=== PATIENT | male | born 1950 | race Caucasian/White ===

== ENCOUNTER 2023-09-07 20:18 | Emergency (ER) | payer MEDICARE, OTHER ==
[~2023-09-07] VITALS: Ht 172.7 cm; Wt 101.2 kg
[2023-09-07 21:34] VITALS: TEMP 98.2
[2023-09-07 22:48] LABS: BASOPHILS # (AUTO) 0.1 K/uL (0.0-0.2); BASOPHILS % (AUTO) 1.9 % (0.0-2.0); EOSINOPHILS # (AUTO) 0.1 K/uL (0.0-0.7); EOSINOPHILS % (AUTO) 1.7 % (0.0-6.0); HEMATOCRIT 29 % (39-51); LYMPHOCYTES % (AUTO) 17.1 % (20.0-44.0); MEAN CORPUSCULAR HEMOGLOBIN 29 PG (26.0-33.0); MEAN CORPUSCULAR HGB CONC 34 g/dl (31.0-36.0); MEAN CORPUSCULAR VOLUME 85 fL (80-96); MONOCYTES # (AUTO) 0.3 K/uL (0.1-1.30); MONOCYTES % (AUTO) 6.1 % (2.0-12.0); NEUTROPHILS # (AUTO) 4.1 K/uL (1.8-8.9); NEUTROPHILS % (AUTO) 73.2 % (43.0-81.0); PLATELET COUNT (AUTO) 253 K/uL (150-450); RED BLOOD CELL COUNT(AUTO) 3.42 MIL/uL (4.5-6.0); RED CELL DISTRIBUTION WIDTH 16.1 % (11.5-15.0); WHITE BLOOD COUNT (AUTO) 5.7 K/uL (4.3-11.0)
[2023-09-07 23:08] LABS: CALCIUM, SERUM 8.7 mg/dL (8.5-10.1); CARBON DIOXIDE 30 mmol/L (21-32); CHLORIDE 99 mmol/L (98-107); CREATININE 1.4 mg/dL (0.6-1.3); GLUCOSE 367 mg/dL (74-106); POTASSIUM 3.6 mmol/L (3.5-5.1); SODIUM SERUM 136 mmol/L (136-145); UREA NITROGEN, BLOOD 19 mg/dL (7-18)
[2023-09-07 23:22] LABS: NT-PRO BNP 1358 pg/mL (0-125)
[2023-09-08] MEDS ORDERED: FUROSEMIDE 40 MG/4 ML VIAL ONE (00:32)
[2023-09-08] MEDS ORDERED: FUROSEMIDE 20 MG/2 ML VIAL ONE (00:33)
[2023-09-08] MEDS: FUROSEMIDE 20 MG/2 ML VIAL IV ONE (00:37)
[2023-09-08] MEDS: ACETAMINOPHEN ES 500 MG TABLET PO ONE (00:38)
[2023-09-08 05:15] VITALS: BP 137/94; O2SAT 99
== END 2023-09-08 05:16 | disposition home or self-care (01) ==
LOC: ER 20:23
DX: S00.83XA Contusion of other part of head, initial encounter (principal); S40.012A Contusion of left shoulder, initial encounter; R60.0 Localized edema; I11.0 Hypertensive heart disease with heart failure; I50.9 Heart failure, unspecified; M79.661 Pain in right lower leg; M79.662 Pain in left lower leg; E78.00 Pure hypercholesterolemia, unspecified; E11.9 Type 2 diabetes mellitus without complications; K21.9 Gastro-esophageal reflux disease without esophagitis; F41.9 Anxiety disorder, unspecified; F32.A Depression, unspecified; W18.30XA Fall on same level, unspecified, initial encounter; Y93.89 Activity, other specified; Y92.89 Other specified places as the place of occurrence of the external cause; Y99.8 Other external cause status
CPT/HCPCS: 99285; 70450; 71045; 93005; 73060; 73030; 70486; 85025; 80048; 36415; 84484; 83880; 93970; 96374; J1940

== ENCOUNTER 2023-10-24 21:19 | Inpatient (IN) | payer MEDICARE, OTHER ==
[~2023-10-24] VITALS: Ht 185.4 cm; Wt 93.0 kg
[2023-10-24 22:19] LABS: BASOPHILS # (AUTO) 0.1 K/uL (0.0-0.2); EOSINOPHILS # (AUTO) 0.1 K/uL (0.0-0.7); EOSINOPHILS % (AUTO) 2.1 % (0.0-6.0); HEMATOCRIT 30 % (39-51); HEMOGLOBIN 10.2 g/dL (13.5-17.5); LYMPHOCYTES % (AUTO) 24.2 % (20.0-44.0); MEAN CORPUSCULAR HEMOGLOBIN 29 PG (26.0-33.0); MEAN CORPUSCULAR HGB CONC 34 g/dl (31.0-36.0); MEAN CORPUSCULAR VOLUME 84 fL (80-96); MONOCYTES # (AUTO) 0.3 K/uL (0.1-1.30); NEUTROPHILS # (AUTO) 2.7 K/uL (1.8-8.9); NEUTROPHILS % (AUTO) 63.7 % (43.0-81.0); PLATELET COUNT (AUTO) 395 K/uL (150-450); RED BLOOD CELL COUNT(AUTO) 3.56 MIL/uL (4.5-6.0); RED CELL DISTRIBUTION WIDTH 15.9 % (11.5-15.0); WHITE BLOOD COUNT (AUTO) 4.3 K/uL (4.3-11.0)
[2023-10-24 22:29] LABS: APPEARANCE,URINE CLEAR (CLEAR); BILIRUBIN,URINE NEGATIVE (NEGATIVE); BLOOD, URINE 1+ Ery/uL (NEGATIVE); COLOR,URINE YELLOW (YELLOW); KETONES,URINE TRACE mg/dL (NEGATIVE); LEUKOCYTE ESTERASE ,URINE NEGATIVE (NEGATIVE); NITRITE, URINE NEGATIVE (NEGATIVE); PH,URINE 7.5 (5.0-8.0); PROTEIN,URINE 3+ mg/dl (NEGATIVE); UGLUCOSE TRACE mg/dL (NEGATIVE)
[2023-10-24 22:43] LABS: CALCIUM, SERUM 8.3 mg/dL (8.5-10.1); CARBON DIOXIDE 27 mmol/L (21-32); CHLORIDE 107 mmol/L (98-107); CREATININE 1.2 mg/dL (0.6-1.3); GLUCOSE 174 mg/dL (74-106); POTASSIUM 3.3 mmol/L (3.5-5.1); SODIUM SERUM 142 mmol/L (136-145); UREA NITROGEN, BLOOD 9 mg/dL (7-18)
[2023-10-24 22:50] LABS: ALANINE AMINOTRANSFERASE 18 U/L (12-78); ALBUMIN 2.8 g/dL (3.4-5.0); ALKALINE PHOSPHATASE 35 U/L (46-116); ASPARTATE AMINOTRANSFERASE 21 U/L (15-37); BILIRUBIN,DIRECT 0.2 mg/dL (0.0-0.2); BILIRUBIN,TOTAL 0.4 mg/dL (0.2-1.0); TOTAL PROTEIN, SERUM 6.8 g/dL (6.4-8.2)
[2023-10-24 22:58] LABS: LACTIC ACID 1.2 mmol/L (0.4-2.0)
[2023-10-24 23:22] LABS: WBC,URINE 0-2 /HPF (0-3)
[2023-10-24 23:23] LABS: ADD URINE CULTURE NO; BACTERIA,URINE Few /HPF (None Seen)
[2023-10-25 01:41] LABS: ALCOHOL, BLOOD < 3 mg/dL (0-10); SALICYLATE 2.8 mg/dL (2.8-20.0)
[2023-10-25 01:41] LABS: AMPHETAMINE, URINE NEGATIVE (NEGATIVE); BARBITURATE, URINE NEGATIVE (NEGATIVE); BENZODIAZEPINE, URINE NEGATIVE (NEGATIVE); CANNABINOID, URINE NEGATIVE (NEGATIVE); COCCAINE, URINE NEGATIVE (NEGATIVE); OPIATE, URINE NEGATIVE (NEGATIVE); PHENCYCLIDINE SCREEN,URINE NEGATIVE (NEGATIVE)
[2023-10-25 01:42] LABS: ACETAMINOPHEN <10 ug/ml (10-30)
[2023-10-25] MEDS ORDERED: ACETAMINOPHEN 325 MG TABLET PO PRN (03:30)
[2023-10-25] MEDS ORDERED: ONDANSETRON HCL/PF 4 MG/2 ML VIAL IVP PRN (03:30)
[2023-10-25] MEDS ORDERED: Z GUARD REMEDY 4 OZ OINT TP PRN (03:30)
[2023-10-25] MEDS ORDERED: MAGNESIUM HYDROXIDE 30 ML UDC PO PRN ×2 (03:30→21:30)
[2023-10-25] MEDS ORDERED: MAG HYDROX/AL HYDROX/SIMETH 30 ML UDC PO PRN (03:30)
[2023-10-25] MEDS ORDERED: APIX5TAB PO (08:43)
[2023-10-25] MEDS ORDERED: DULO60CA45 PO (08:43)
[2023-10-25] MEDS ORDERED: BISA10SU11 RC (08:43)
[2023-10-25] MEDS ORDERED: MAGN400O6 PO (08:43)
[2023-10-25] MEDS ORDERED: DIVA-76 PO (08:43)
[2023-10-25] MEDS ORDERED: LEVO25TA7 PO (08:43)
[2023-10-25] MEDS ORDERED: GABA-532 PO (08:43)
[2023-10-25] MEDS ORDERED: AMIO200T5 PO (08:43)
[2023-10-25] MEDS ORDERED: SENN8.6T19 PO (08:43)
[2023-10-25] MEDS ORDERED: ATOR10TA PO (08:43)
[2023-10-25] MEDS ORDERED: FENO145T21 PO (08:43)
[2023-10-25] MEDS ORDERED: DOCU-141 PO (08:43)
[2023-10-25] MEDS ORDERED: QUET50TA PO (08:43)
[2023-10-25] MEDS ORDERED: ESCI5TAB PO (08:43)
[2023-10-25] MEDS ORDERED: CEFT1VIA14 IV (08:43)
[2023-10-25] MEDS ORDERED: TRAM50TA2 PO (08:43)
[2023-10-25] MEDS ORDERED: GUAI100S11 PO (08:43)
[2023-10-25] MEDS ORDERED: FURO-145 PO (08:43)
[2023-10-25] MEDS ORDERED: LOSA25TA27 PO (08:43)
[2023-10-25] MEDS ORDERED: HYDR-4075 PO (08:43)
[2023-10-25] MEDS ORDERED: PANT40TA2 PO (08:43)
[2023-10-25 14:10] VITALS: BP 152/95; TEMP 98.2; O2SAT 97
[2023-10-25] MEDS: IV NS 0.9% 1,000 ML IV PRN (14:34)
[2023-10-25] MEDS: POTASSIUM CHLORIDE 20 MEQ TAB.PRT.SR PO ONE (15:10)
[2023-10-25 16:00] VITALS: BP 145/97; TEMP 98.1; O2SAT 99
[2023-10-25 20:00] VITALS: BP 148/81; TEMP 98.2; O2SAT 98
[2023-10-25] MEDS ORDERED: Medication Not On Formulary EA (Quetiapine Fumarate (Seroquel) 50 MG) PO SCH (22:00)
[2023-10-26] MEDS: SENNOSIDES 8.6 MG TABLET PO SCH (00:27)
[2023-10-26] MEDS: ATORVASTATIN 10 MG TABLET PO SCH (00:27)
[2023-10-26] MEDS: ZOLPIDEM TARTRATE 5 MG TABLET PO PRN (00:29)
[2023-10-26] MEDS: QUETIAPINE FUMARATE 25 MG TABLET PO ONE (00:37)
[2023-10-26 04:00] VITALS: BP 135/80; TEMP 98.2; O2SAT 98
[2023-10-26 06:49] LABS: BASOPHILS # (AUTO) 0.1 K/uL (0.0-0.2); BASOPHILS % (AUTO) 2.4 % (0.0-2.0); EOSINOPHILS # (AUTO) 0.1 K/uL (0.0-0.7); EOSINOPHILS % (AUTO) 1.7 % (0.0-6.0); HEMATOCRIT 28 % (39-51); HEMOGLOBIN 9.5 g/dL (13.5-17.5); LYMPHOCYTES # (AUTO) 1.1 K/uL (0.8-4.8); LYMPHOCYTES % (AUTO) 21.5 % (20.0-44.0); MEAN CORPUSCULAR HEMOGLOBIN 28 PG (26.0-33.0); MEAN CORPUSCULAR HGB CONC 34 g/dl (31.0-36.0); MEAN CORPUSCULAR VOLUME 84 fL (80-96); MONOCYTES # (AUTO) 0.4 K/uL (0.1-1.30); NEUTROPHILS # (AUTO) 3.3 K/uL (1.8-8.9); NEUTROPHILS % (AUTO) 66.4 % (43.0-81.0); PLATELET COUNT (AUTO) 343 K/uL (150-450); RED BLOOD CELL COUNT(AUTO) 3.33 MIL/uL (4.5-6.0); RED CELL DISTRIBUTION WIDTH 15.5 % (11.5-15.0)
[2023-10-26 07:49] LABS: CALCIUM, SERUM 6.9 mg/dL (8.5-10.1); CARBON DIOXIDE 27 mmol/L (21-32); CHLORIDE 104 mmol/L (98-107); GLUCOSE 197 mg/dL (74-106); PHOSPHORUS 1.8 mg/dL (2.5-4.9); POTASSIUM 3.1 mmol/L (3.5-5.1); SODIUM SERUM 139 mmol/L (136-145); UREA NITROGEN, BLOOD 8 mg/dL (7-18)
[2023-10-26] MEDS ORDERED: ESCITALOPRAM OXALATE (10 MG) 10 MG TABLET PO SCH (09:00)
[2023-10-26] MEDS ORDERED: DULOXETINE HCL 30 MG CAPSULE.DR PO SCH (09:00)
[2023-10-26] MEDS: LOSARTAN POTASSIUM 25 MG TABLET PO SCH (09:51)
[2023-10-26] MEDS: AMIODARONE HCL 200 MG TABLET PO SCH (09:51)
[2023-10-26] MEDS: FENOFIBRATE NANOCRYS (145 MG) 145 MG TABLET PO SCH (10:19)
[2023-10-26] MEDS: DIVALPROEX SODIUM 250 MG TABLET.DR PO SCH (10:19)
[2023-10-26] MEDS: DOCUSATE SODIUM 100 MG CAPSULE PO SCH (10:19)
[2023-10-26] MEDS: LEVOTHYROXINE SODIUM 25 MCG TABLET PO SCH (10:20)
[2023-10-26] MEDS: APIXABAN 5 MG TABLET PO SCH (10:20)
[2023-10-26] MEDS: POTASSIUM CHLORIDE 20 MEQ TAB.PRT.SR PO SCH (10:21)
[2023-10-26] MEDS: PANTOPRAZOLE 40 MG TABLET.DR PO SCH (10:21)
[2023-10-26] MEDS: GABAPENTIN 100 MG CAPSULE PO SCH (10:21)
[2023-10-26 16:00] VITALS: BP 112/64; TEMP 100; O2SAT 96
[2023-10-26] MEDS: K PHOS NEUTRAL 250 MG TABLET PO ONE (16:26)
[2023-10-26 20:00] VITALS: BP 139/73; TEMP 97.7; O2SAT 99
[2023-10-26] MEDS: QUETIAPINE FUMARATE 25 MG TABLET PO SCH (22:05)
[2023-10-26] MEDS: MIRTAZAPINE 15 MG TABLET PO SCH (22:05)
[2023-10-27 07:34] LABS: CALCIUM, SERUM 7.6 mg/dL (8.5-10.1); CARBON DIOXIDE 25 mmol/L (21-32); CHLORIDE 109 mmol/L (98-107); CREATININE 1.1 mg/dL (0.6-1.3); GLUCOSE 217 mg/dL (74-106); POTASSIUM 3.4 mmol/L (3.5-5.1); SODIUM SERUM 141 mmol/L (136-145); UREA NITROGEN, BLOOD 10 mg/dL (7-18)
[2023-10-27 07:42] LABS: BASOPHILS # (AUTO) 0.1 K/uL (0.0-0.2); EOSINOPHILS # (AUTO) 0.1 K/uL (0.0-0.7); EOSINOPHILS % (AUTO) 2.7 % (0.0-6.0); HEMATOCRIT 28 % (39-51); HEMOGLOBIN 9.7 g/dL (13.5-17.5); LYMPHOCYTES # (AUTO) 1.1 K/uL (0.8-4.8); LYMPHOCYTES % (AUTO) 31.8 % (20.0-44.0); MEAN CORPUSCULAR HEMOGLOBIN 29 PG (26.0-33.0); MEAN CORPUSCULAR HGB CONC 34 g/dl (31.0-36.0); MEAN CORPUSCULAR VOLUME 85 fL (80-96); MONOCYTES # (AUTO) 0.2 K/uL (0.1-1.30); MONOCYTES % (AUTO) 6.7 % (2.0-12.0); NEUTROPHILS % (AUTO) 55.8 % (43.0-81.0); PLATELET COUNT (AUTO) 333 K/uL (150-450); RED BLOOD CELL COUNT(AUTO) 3.34 MIL/uL (4.5-6.0); RED CELL DISTRIBUTION WIDTH 15.8 % (11.5-15.0); WHITE BLOOD COUNT (AUTO) 3.6 K/uL (4.3-11.0)
[2023-10-27 08:00] VITALS: BP 168/100; TEMP 97.5; O2SAT 98
[2023-10-27] MEDS: POTASSIUM CHLORIDE 20 MEQ TAB.PRT.SR PO SCH (09:18)
[2023-10-27 17:30] VITALS: BP 145/95
[2023-10-27 20:00] VITALS: BP 171/88; TEMP 98.3; O2SAT 99
[2023-10-28] MEDS: CLONIDINE HCL 0.1 MG TABLET PO PRN (00:36)
[2023-10-28 06:53] LABS: CALCIUM, SERUM 7.6 mg/dL (8.5-10.1); CREATININE 1.2 mg/dL (0.6-1.3); POTASSIUM 3.4 mmol/L (3.5-5.1)
[2023-10-28 07:00] VITALS: BP 165/64; TEMP 97.5; O2SAT 100
[2023-10-28] MEDS: POTASSIUM CHLORIDE 20 MEQ TAB.PRT.SR PO ONE (09:02)
[2023-10-28 09:09] VITALS: BP 165/104
[2023-10-28] MEDS: LOSARTAN POTASSIUM 25 MG TABLET PO SCH (09:09)
[2023-10-28] MEDS: AMLODIPINE BESYLATE 5 MG TABLET PO SCH (09:09)
== END 2023-10-28 14:00 | DRG 640 ==
LOC: ER 21:26 → MED 10-25 13:44
PROVIDERS: ADMIT Internal Medicine; ATTEND Internal Medicine
DX: E86.0 Dehydration (principal); E43 Unspecified severe protein-calorie malnutrition; G93.41 Metabolic encephalopathy; R62.7 Adult failure to thrive; Z68.27 Body mass index [BMI] 27.0-27.9, adult; Z20.822 Contact with and (suspected) exposure to COVID-19; E03.9 Hypothyroidism, unspecified; I10 Essential (primary) hypertension; Z95.0 Presence of cardiac pacemaker; E78.00 Pure hypercholesterolemia, unspecified; E11.9 Type 2 diabetes mellitus without complications; E87.6 Hypokalemia; F29 Unspecified psychosis not due to a substance or known physiological condition; I16.0 Hypertensive urgency; D64.9 Anemia, unspecified; E88.09 Other disorders of plasma-protein metabolism, not elsewhere classified; I48.0 Paroxysmal atrial fibrillation; Z79.01 Long term (current) use of anticoagulants; F32.A Depression, unspecified; F41.9 Anxiety disorder, unspecified; Z86.73 Personal history of transient ischemic attack (TIA), and cerebral infarction without residual deficits; F39 Unspecified mood [affective] disorder; F06.8 Other specified mental disorders due to known physiological condition
CPT/HCPCS: 36415; 70450-TC; 71045-TC; 80048-TC; 80076-TC; 80164-TC; 81001; 82140-TC; 82962-TC; 83605-TC; 83735-TC; 84100-TC; 84484-TC; 85025-TC; 87040-TC; 87081-TC; 87086-TC; 92526; 92611-TC; A4223; G0378; G0480; J7030